=== PATIENT | male | born 1950 | race Caucasian/White ===

== ENCOUNTER 2020-06-15 00:11 | Outpatient (CLI) | payer OTHER, SELFPAY ==
[2020-06-15 20:23] LABS: SARS-CoV-2 RNA PCR Negative
== END 2020-06-15 00:12 | disposition home or self-care (01) ==
LOC: ANHCOVIDDT 00:12
PROVIDERS: PCP Internal Medicine; Visit Provider Internal Medicine Gastroenterology
DX: Z01.812 Encounter for preprocedural laboratory examination (principal); Z20.828 Contact with and (suspected) exposure to other viral communicable diseases
CPT/HCPCS: 87635; C9803; U0003

== ENCOUNTER 2020-06-17 01:40 | Day surgery (SDC) | payer OTHER, SELFPAY ==
[2020-06-09 13:53] VITALS: BMI 36.0
[2020-06-17 06:26] VITALS: BP 148/82; PULSE 95; RESP 16; TEMP 36.8; O2SAT 98; BMI 36.1
[2020-06-17 06:45] LABS: Glucose Point of Care 109 (65-105)
[2020-06-17] MEDS: LACTATED RINGERS 1,000 ML 150 ML IV CONT (06:46)
--- NOTE | 2020-06-17 07:14 | P.PNAN_ITS ---
Anes - Initial Pre Proc Eval Procedure: Operation Date: 06/17/20 07:30 Proposed Procedures p Screening Colonoscopy - Adan Ratliff MD Date/Time: 06/17/20 07:14 Surgeon: Adan Ratliff MD Pre Op Diagnosis: HX OF COLON POLYPS Patient Data Age: 70 Gender: M Height: 6 ft 1 in Weight: 124.2 kg Last Vital Signs Temp 36.8 C 06/17/20 06:26 Pulse 95 06/17/20 06:26 Resp 16 06/17/20 06:26 BP 148/82 H 06/17/20 06:26 Pulse Ox 98 06/17/20 06:26 Allergies Allergy/AdvReac Type Severity Reaction Status Date / Time No Known Allergies Allergy Verified 06/17/20 06:24 Home Medications Medication Instructions Recorded Confirmed Type apixaban [Eliquis] 5 mg PO Q12HR #60 tablet 11/01/19 06/09/20 Rx metoprolol tartrate 50 mg PO Q12HR #60 tablet 11/01/19 06/09/20 Rx metformin 500 mg PO DAILY 06/09/20 06/09/20 History Laboratory Tests 06/17/20 06:43 POC Capillary Glucose 109 mg/dl mg/dl (65-105) Patient hx anesthesia problems: none Family hx anesthesia problems: none PMFSH Past Medical History Medical History Afib Bladder cancer Diabetes type 2, controlled HTN (hypertension) Surgical History Surgical History No history of previous surgery S/P laparoscopic cholecystectomy S/P umbilical hernia repair, follow-up exam Family History Family History Father Acute myocardial infarction Hypertension Congestive heart failure Mother Congestive heart failure Other Gallbladder disease Sibling Patient's sister is in good health Mother Patient's mother is Father Patient's father is Social History Social History Social History: Pt is a former who smoked 2PPD for 40 years and quit 5 years ago. 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 He would like to be a full code. Smoking status: Former smoker Tobacco type: cigarettes Second hand tobacco smoke exposure: Yes Alcohol intake: never Substance use: never Gender identity (if verbalized by the patient): Male Spiritual care concerns: No Agree to blood products: Yes Anes - Eval Final PreProcedure Day of Procedure 06/17/20 07:14 Patient weight: obese Heart: irregular rhythm Lungs: decreased breath sounds Airway: Mallampati scale class II Neurological: alert and oriented Last oral intake: >/= 8 hours ASA classification: III Emergent: no Anesthetic plan: proceed Anesthesia type and monitoring: general GIVS and standard monitoring Informed Consent: The patient's anesthetic plan and its attendant risks and benefits were discussed with the patient/family/POA. Questions were solicited and answers provided to the satisfaction of the patient/family/POA.
--- NOTE | 2020-06-17 07:53 | WPDGICN ---
Assessment and Plan Assessment and plan (1) History of colon polyps: Code(s): Z86.010 - Personal history of colonic polyps Status: Acute Assessment and Plan: Patient has history of adenomatous colon polyps removed from the colon in 2016. Patient presents today for colonoscopy. Anticoagulation will be held briefly prior to procedure. Follow-up endoscopies at about 5 year intervals is advised. (2) Afib: Code(s): I48.91 - Unspecified atrial fibrillation Status: Acute (3) Bladder cancer: Code(s): C67.9 - Malignant neoplasm of bladder, unspecified Status: Acute GI Consult Note Consult date/time: 06/17/20 07:53 HPI: Gerard Cai is a 70 year old male Seen in evaluation at the request of Dr Ayush Manning. patient presents for screening colonoscopy. Patient has a history of adenomatous colon polyps removed from the colon in 2016. His current weight appetite bowel movements are normal. He denies abdominal pain. He has had no bleeding. His bowel habits are now regular. Past medical history is significant for history of cholecystectomy in October 2019. He has subsequently was identified as having bladder cancer. Currently has been treated and with no evidence of active disease. He has a history of atrial fibrillation diagnosis this year now on Eliquis which will be held for any colonoscopy. Review of Systems Review of Systems: All systems reviewed & are unremarkable except as noted in HPI and below PMFSH Past Medical History Medical History Afib Bladder cancer Diabetes type 2, controlled HTN (hypertension) Surgical History Surgical History No history of previous surgery S/P laparoscopic cholecystectomy S/P umbilical hernia repair, follow-up exam Family History Family History Father Acute myocardial infarction Hypertension Congestive heart failure Mother Congestive heart failure Other Gallbladder disease Sibling Patient's sister is in good health Mother Patient's mother is Father Patient's father is Social History Social History Social History: Pt is a former who smoked 2PPD for 40 years and quit 5 years ago. 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 He would like to be a full code. Smoking status: Former smoker Tobacco type: cigarettes Second hand tobacco smoke exposure: Yes Alcohol intake: never Substance use: never Gender identity (if verbalized by the patient): Male Spiritual care concerns: No Agree to blood products: Yes Meds Home Medications and Allergies Home Medications Medication Instructions Recorded Confirmed Type apixaban [Eliquis] 5 mg PO Q12HR #60 tablet 11/01/19 06/09/20 Rx metoprolol tartrate 50 mg PO Q12HR #60 tablet 11/01/19 06/09/20 Rx metformin 500 mg PO DAILY 06/09/20 06/09/20 History Allergies Allergy/AdvReac Type Severity Reaction Status Date / Time No Known Allergies Allergy Verified 06/17/20 06:24 Vital Signs Vital Signs - 24 hr 06/17/20 06:26 Temperature 98.3 F Pulse Rate 95 Respiratory Rate 16 Blood Pressure 148/82 H Pulse Oximetry 98 Exam Narrative: Exam Narrative: Physical exam reveals patient to be alert. Vital signs stable. HEENT exam unremarkable. He is anicteric. Lungs are clear to auscultation and percussion. Heart is without murmur or extra sounds. Abdominal exam bowel sounds are present soft nontender with no organomegaly. Digital external rectal exam is normal.
[2020-06-17 07:55] VITALS: BP 123/76; PULSE 94; RESP 18; O2SAT 97
[2020-06-17 08:05] VITALS: BP 129/81; PULSE 86; RESP 22; O2SAT 99
[2020-06-17 08:15] VITALS: BP 141/78; PULSE 83; RESP 25; O2SAT 99
== END 2020-06-17 08:36 | disposition home or self-care (01) ==
PROVIDERS: PCP Internal Medicine; Visit Provider Internal Medicine Gastroenterology
PROC: 0DJD8ZZ Inspection of Lower Intestinal Tract, Via Natural or Artificial Opening Endoscopic (ICD-10-PCS; CPT 45378; principal; 2020-06-17 07:30)
DX: Z12.11 Encounter for screening for malignant neoplasm of colon (principal); K64.8 Other hemorrhoids; Z86.010 Personal history of colon polyps; I48.91 Unspecified atrial fibrillation; I10 Essential (primary) hypertension; E11.9 Type 2 diabetes mellitus without complications; Z85.51 Personal history of malignant neoplasm of bladder; Z79.01 Long term (current) use of anticoagulants; Z79.84 Long term (current) use of oral hypoglycemic drugs; Z87.891 Personal history of nicotine dependence; E66.9 Obesity, unspecified; Z68.36 Body mass index [BMI] 36.0-36.9, adult
CPT/HCPCS: G0105; J2704; J7120

== ENCOUNTER 2021-10-14 08:28 | Outpatient (CLI) | payer OTHER, SELFPAY ==
--- NOTE | 2021-10-14 11:00 | NEURO_ITS ---
Impression: # Complains of stinging pain in right hand. # Moderate right Carpal Tunnel Syndrome. # No ulnar neuropathy. # Needle/EMG exam mildly neurogenic in right APB. Nerve Conduction Studies Anti Sensory Summary Table Stim Site NR Peak (ms) P-T Amp (?V) Site1 Site2 Delta-P (ms) Dist (cm) Patrick (m/s) Right Median Anti Sensory (2-3nd Digit) Wrist 4.8 6.4 Wrist 2-3nd Digit 4.8 14.0 29 Wrist 7.4 13.5 Wrist 2-3nd Digit 4.8 14.0 29 Right Radial Anti Sensory (Base 1st Digit) Wrist 3.0 23.6 Wrist Base 1st Digit 3.0 0.0 Right Ulnar Anti Sensory (5th Digit) Wrist 2.8 29.5 Wrist 5th Digit 2.8 14.0 50 Motor Summary Table Stim Site NR Onset (ms) O-P Amp (mV) Site1 Site2 Delta-0 (ms) Dist (cm) Patrick (m/s) Right Median Motor (Abd Poll Brev) Wrist 6.4 1.1 Elbow Wrist 6.6 32.0 48 Elbow 13.0 1.6 Right Ulnar Motor (Abd Dig Minimi) Wrist 2.7 6.3 A Elbow Wrist 6.1 34.0 56 A Elbow 8.8 4.5 F Wave Studies NR F-Lat (ms) L-R F-Lat (ms) Right Median (Mrkrs) (Abd Poll Brev) 32.40 Right Ulnar (Mrkrs) (Abd Dig Min) 31.94 EMG Side Muscle Nerve Root Ins Act Fibs Amp Dur Recrt Comment Right 1stDorInt Ulnar C8-T1 Nml Nml Nml Nml Nml Right Ext Indicis Radial (Post Int) C7-8 Nml Nml Nml Nml Nml Right Ext Digitorum Radial (Post Int) C7-8 Nml Nml Nml Nml Nml Right BrachioRad Radial C5-6 Nml Nml Nml Nml Nml Right PronatorTeres Median C6-7 Nml Nml Nml Nml Nml Right Abd Poll Brev Median C8-T1 Nml Nml Incr >12ms Reduced Right Abd Poll Long Radial (Post Int) C7-8 Nml Nml Nml Nml Nml MTDD
== END 2021-10-14 08:29 | disposition home or self-care (01) ==
PROVIDERS: PCP Internal Medicine; Visit Provider Nurse Practitioner
DX: G56.01 Carpal tunnel syndrome, right upper limb (principal)
CPT/HCPCS: 95886; 95909

== ENCOUNTER 2021-12-02 01:17 | Day surgery (SDC) | payer OTHER, SELFPAY ==
[2021-11-24 15:10] VITALS: BMI 38.9
--- NOTE | 2021-11-24 15:16 | PC.NURSE ---
Report to the Outpatient Waiting Room, entrance under the green pavilion located off [facility], at time _1200 on date _12/02/21 . OR Time: _1300 . - You and your visitor will be asked a series of questions to screen for COVID 19 for your protection. - A mask is required within the hospital. - Only one visitor is allowed at this time. Patient visitors will be guided where to wait when not with patient. Preoperative COVID Testing Requirements: No COVID Test needed if: (proof is required; if not received patient will have Rapid Test prior to entry) - Patient has received COVID Vaccine at least 14 days prior to procedure date or - Patient has positive COVID test result within last 90 days of surgery date. COVID Test needed if above criteria is not met If not COVID vaccinated a COVID test must be conducted within 72 hours of surgery and patient is asked to isolate self from time of testing until procedure. You will go to the [facility] for your COVID testing. The [facility] Testing site is located at the corner of [address] [facility]. You will only be called if COVID results are positive and your surgeon may reschedule your elective surgery date. LIGHT BREAKFAST MORNING OF SURGERY Take the following medications with a SIP of water the morning of surgery: ___ALL ROUTINE MEDICATIONS MAY REMAIN ON ELIQUIS PER DR MARTINEZ Medications to discontinue per physician Date to take last dose Please no make-up, nail spanish, hairspray, perfume, deodorant, or body powder the day of surgery. No jewelry (including any body piercings) or valuables the day of surgery, leave them at home. Please take a shower or bath the night before, or the morning of, surgery with an antibacterial soap. Wear comfortable, loose fitting clothing. Children are encouraged to wear pajamas. - Jewelry must be removed prior to entering the operating room. Rings and piercings that are not removed may be cut off. - The hospital will not accept responsibility for valuables. - Please leave all valuables, including medications, at home the day of surgery. If you are going home after surgery, a licensed van cdl driver must drive you home. - NO public transportation without another adult. - We recommend that an adult stay with you for 24 hours following discharge. - We also recommend that you do not drive, make important decision, drink alcoholic beverages, or take any drugs that were not prescribed by your health care provider for at least 24 hours after your discharge time. For Pediatric surgeries, we recommend two adults accompany the child home (only one inside the building at this time). Follow any additional instructions given to you from your surgeon. Telephone instructions given to __PT and asked if any additional questions and then verbalized understanding. Patient advised to call surgeon office or pre surgery nurse liaison [phone] if any additional questions.
[2021-12-02] VITALS (13 sets, daily range): BP systolic 135–159; BP diastolic 65–93; PULSE 78–94; RESP 16–20; TEMP 35.7; O2SAT 94–98
[2021-12-02] MEDS: LIDO 1%/EPINEPHRINE/PF 1:200,000 30 ML VIAL INFILTRATE (10:58)
[2021-12-02] MEDS: BACITRACIN OINTMENT 15 GM TUBE 1 APPLIC TOPICAL (10:59)
[2021-12-02] MEDS: BALANCED SALT SOLN OPHTH IRRIG 30 ML BTL EACH EYE (11:02)
[2021-12-02 12:34] LABS: Glucose Point of Care 127 mg/dl (65-105)
--- NOTE | 2021-12-02 12:47 | P.OP_ITS ---
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 1 cm excision of neoplasm of unspecified behavior of the left lower ear with simple repair 2 cm Surgeon Rick Ledbetter MD Anesthesia local Description of Procedure The 2 sites were marked on the patient's head as he waited in the holding area. He was taken to the operating room placed supine on the operating table. Time- out was held and confirmed. The face and ear and were prepped and draped in usual fashion the sites were carefully marked for incision and locally infiltrated with 1% lidocaine with epinephrine. The lesion from the forehead was taken 1st with a full-thickness skin excision extending to the deep fascia. The specimen was marked at its superior margin and sent to pathology for frozen section. The pathologist reported that the deep margin was positive around the 7:00 o'clock area. The deep fascia was reexcised from the 6 to 12 o'clock aspect extending over mm deep and a little beyond the periphery of the prior excision. The the old 7:00 o'clock margin was marked with suture and ink . The pathologist reports all new margins free. During that time the small excision was taken from the helix of the left lower ear. That specimen was sent for permanent section. The wound was closed with interrupted 5 0 nylon. Standing cones removed both and to improve contour. The forehead lesion was closed after undermining more than a cm in all directions and approximating the wound margins with intradermal 3-0 Vicryl suture and closing the skin with a running 5 0 nylon Estimated Blood Loss 5 Drains No Packing No Pathology yes Complications No immediate complications Condition stable Disposition same day
--- NOTE | 2021-12-02 13:08 | WPDHPUPDATE1 ---
History and Physical Update Update Date/Time: 12/02/21 13:08 History and Physical has been reviewed, including an updated exam of the patient. There are NO changes in the patient's condition. Risks, benefits, and alternatives have been discussed and questions answered. Patient agrees to proceed with procedure.
== END 2021-12-02 12:45 | disposition home or self-care (01) ==
PROVIDERS: PCP Internal Medicine; Visit Provider Plastic Surgery
PROC: (CPT 11642; principal; 2021-12-02 11:30)
DX: C44.319 Basal cell carcinoma of skin of other parts of face (principal); L82.1 Other seborrheic keratosis; E11.9 Type 2 diabetes mellitus without complications; I49.9 Cardiac arrhythmia, unspecified; Z79.01 Long term (current) use of anticoagulants; Z79.84 Long term (current) use of oral hypoglycemic drugs
CPT/HCPCS: 11642; 12052; 11441; 82948; 88305; 88331; A9270

== ENCOUNTER → 2022-02-24 12:20 | Outpatient (CLI) | payer OTHER, SELFPAY ==
--- NOTE | ~2022-02-24 | XR_ITS ---
XR hip BI 2V w AP pelvis DATE: 02/24/2022 13:36 INDICATION: Right hip pain TECHNIQUE: AP pelvis. AP and lateral views of each hip. COMPARISON: None FINDINGS: Prominent degenerative disc disease at L5-S1. Osteopenia. The pubic symphysis and sacroiliac joints are intact. No fracture or dislocation, avascular necrosis or bone destruction of either hip. Moderate bilateral hip osteoarthritis. IMPRESSION: Bilateral hip osteoarthritis Osteopenia Prominent degenerative disc disease at L5-S1 Reviewed, dictated and finalized at location A.
--- NOTE | ~2022-02-24 | XR_ITS ---
EXAMINATION: XR shoulder RT min 2V DATE: 02/24/2022 13:36 INDICATION: Right shoulder pain. TECHNIQUE: 4 views of right shoulder were obtained. COMPARISON: None. FINDINGS: Bone alignment is normal. No fracture. There is mild osteoarthritis of glenohumeral joint a nd acromioclavicular joint. IMPRESSION: 1. Polyarticular osteoarthritis. Reviewed, dictated and finalized at location A.
--- NOTE | ~2022-02-24 | XR_ITS ---
XR shoulder LT min 2V DATE: 02/24/2022 13:36 INDICATION: Shoulder pain TECHNIQUE: 4 views COMPARISON: None FINDINGS: There is diffuse osteopenia. There is old healed fracture deformity of the mid shaft of the left clavicle. No recent fracture or dislocation, periosteal reaction or bone destruction. No abnormal soft tissue calcification. IMPRESSION: Osteopenia Old healed fracture deformity of left clavicular shaft Reviewed, dictated and finalized at location A.
== END ==
PROVIDERS: PCP Internal Medicine; Visit Provider Internal Medicine
DX: M16.0 Bilateral primary osteoarthritis of hip (principal); M47.817 Spondylosis without myelopathy or radiculopathy, lumbosacral region; M19.011 Primary osteoarthritis, right shoulder; M85.812 Other specified disorders of bone density and structure, left shoulder
CPT/HCPCS: 73030; 73521

== ENCOUNTER 2022-05-24 14:37 | Outpatient (CLI) | payer OTHER, SELFPAY ==
--- NOTE | ~2022-05-24 | DEXA_ITS ---
Bone Density Report Name: ALO MOMIN Age: 72 Sex: Male Ethnicity: White Date of : 1950 Indication: screening for osteoporosis; history of glucocorticoids; prior fracture; cancer; Referring Provider: ESTEBAN MAYEN Study: Bone densitometry was performed. Exam Date: May 24, 2022 Accession number: [id number] Bone Density: Region BMD T-score Z-score Classification AP Spine(L1-L4) 1.113 0.2 1.2 Normal Femoral Neck (Left) 0.777 -1.1 0.2 Osteopenia Total Hip (Left) 1.070 0.2 1.0 Normal Femoral Neck (Right) 0.919 -0.1 1.2 Normal Total Hip (Right) 1.108 0.5 1.3 Normal Total Hip Mean 1.089 0.4 1.2 Normal World Health Organization criteria for BMD impression classify patients as: Normal (T-score at or above -1.0), Osteopenia (T-score between -1.0 and -2.5), or Osteoporosis (T-score at or below -2.5). 10-year Fracture Risk(1): Major Osteoporotic Fracture 12% Hip Fracture 2.7% Reported Risk Factors: [place] (), Neck BMD=0.777, BMI=37.4, previous fracture, glucocorticoids Input outside FRAX(R) limits. Adjusted to:Agxjdt=791 kg (1) FRAX(R) Version 3.08. Fracture probability calculated for an untreated patient. Fracture probability may be lower if the patient has received treatment. Clinical Information Provided by Patient: Has had a low trauma fracture Has taken Glucocorticoids Has the following medical conditions: Cancer Patient maximum height was 73 Impression: The patient has low bone mass, based on the Left Femoral Neck T-score. The patient has an estimated ten-year risk of hip fracture of 2.7% and an estimated ten-year risk of major fracture of 12%, based on the WHO FRAX algorithm. The patient has risk factors, including: previous fracture, history of glucocorticoid therapy. Discussion: BONE DENSITY IS LOW AT ONE OR MORE SKELETAL SITES. This patient's lowest T-score is low at one or more skeletal sites. It meets the World Health Organization's (WHO) criteria for ?low bone mass? (T-score between -1.0 and -2.5). The patient's 10-year risk of fracture as calculated by FRAX is less than the threshold where pharmacological therapy is recommended by the National Osteoporosis Foundation (NOF). However, all treatment decisions require clinical judgment and consideration of individual patient factors, including patient preferences, comorbidities, previous drug use, risk factors not captured in the FRAX model (e.g., frailty, falls, vitamin D deficiency, increased bone turnover, interval significant decline in bone density) and possible under or overestimation of fracture risk by FRAX. The patient should follow a healthful lifestyle (good nutrition with adequate calcium and vitamin D, and appropriate weight-bearing exercise). Follow-Up: Consider repeating this study i
== END 2022-05-24 14:38 | disposition home or self-care (01) ==
PROVIDERS: PCP Internal Medicine; Visit Provider Internal Medicine
DX: M85.852 Other specified disorders of bone density and structure, left thigh (principal)
CPT/HCPCS: 77080

== ENCOUNTER → 2023-08-16 07:27 | Outpatient (CLI) | payer OTHER, SELFPAY ==
--- NOTE | ~2023-08-16 | US_ITS ---
Limited Abdominal Sonogram: Real-time sonographic imaging of the right upper quadrant was performed. Clinical History: Elevated bilirubin Findings: The liver appears echogenic, with no evidence of mass lesion or bile duct dilatation. Main portal vein demonstrates normal direction of flow. The gallbladder is absent, consistent with prior cholecystectomy. The common bile duct measures 5 mm. The pancreas is obscured by bowel gas shadowing . Right kidney measures 11.3 cm in length, without evidence for hydronephrosis. Impression: Diffuse fatty infiltration of liver. Status post cholecystectomy. Reviewed, dictated and finalized at location . Impression: Diffuse fatty infiltration of liver. Status post cholecystectomy.
== END ==
PROVIDERS: PCP Nurse Practitioner; Visit Provider Nurse Practitioner
DX: K76.0 Fatty (change of) liver, not elsewhere classified (principal); Z90.49 Acquired absence of other specified parts of digestive tract
CPT/HCPCS: 76705

== ENCOUNTER 2024-02-22 12:33 | Outpatient (CLI) | payer OTHER, SELFPAY ==
--- NOTE | ~2024-02-22 | CT_ITS ---
CT of the Abdomen and Pelvis: Indication: Jaundice Technique: 2.5 mm axial scans were obtained through the abdomen and pelvis following intravenous adm inistration of 100 cc of Omnipaque 350. Dose reduction technique was used on this scan by utilizing a utomated exposure control and iterative reconstruction technique. The dose-length product (DLP) was 1 518.18 mGy-cm. Findings: Scans through the lung bases are unremarkable. Cholecystectomy clips are present. There is an 11 mm amorphous enhancing lesion in the left hepatic l obe, nonspecific (axial image 37). The spleen, pancreas, adrenals and left kidney are within normal l imits. There is a 1.7 cm hypodense, noncystic mass at the right kidney (axial image 82). There are at herosclerotic calcifications of the aorta. No lymphadenopathy. No bowel obstruction or bowel wall thickening. There is no evidence to suggest acute appendicitis. Images through the pelvis were performed. Small right-sided urinary bladder diverticulum present. No pelvic mass evident. No ascites. Impression: No etiology for jaundice identified. Patient is status post cholecystectomy, there is no evidence of biliary dilatation or obstructing mass. 1.7 cm hypodense, noncystic right renal mass. Pre and postcontrast MR recommended to assess for solid lesion versus complex cyst. 11 mm amorphous enhancing lesion in the left hepatic lobe is nonspecific, possibly flash filling david ngioma or other vascular phenomenon. Small right-sided urinary bladder diverticulum. Reviewed, dictated and finalized at [facility]. Impression: No etiology for jaundice identified. Patient is status post cholecystectomy, th ere is no evidence of biliary dilatation or obstructing mass. 1.7 cm hypodense, noncystic right renal mass. Pre and postcontrast MR recommend ed to assess for solid lesion versus complex cyst. 11 mm amorphous enhancing lesion in the left hepatic lobe is nonspecific, possi renetta flash filling hemangioma or other vascular phenomenon. Small right-sided urinary bladder diverticulum.
== END 2024-02-22 12:34 | disposition home or self-care (01) ==
PROVIDERS: PCP Nurse Practitioner; Visit Provider Nurse Practitioner
DX: R17 Unspecified jaundice (principal); N32.3 Diverticulum of bladder
CPT/HCPCS: 74177; Q9967

== ENCOUNTER 2024-04-04 13:19 | Outpatient (CLI) | payer OTHER, SELFPAY ==
--- NOTE | ~2024-04-04 | MR_ITS ---
EXAMINATION: MR MRCP wo/w con/w 3D wo ind DATE: 04/04/2024 14:37 INDICATION: Unspecified jaundice. Right kidney mass. TECHNIQUE: Magnetic resonance imaging (MRI) of the abdomen was performed without and with 20 mL intra venous contrast. Sequences included coronal T2-weighted FS FSE, coronal T2-weighted FSE, axial T1-jenni ghted LAVA, coronal FS FIESTA, axial dual-echo T1-weighted SPGR, coronal lava-FLEX, sagittal T2-weigh celestina FSE, axial T2-weighted FSE, and axial DWI. Thick-slab T2-weighted FSE images were obtained for ma gnetic resonance cholangiopancreatography (MRCP). Maximum intensity projection 3-D reconstructions of the volumetric data were created by the technologist. Postcontrast sequences included coronal LAVA-f emeterio and time course of axial T1-weighted LAVA. COMPARISON: CT abdomen and pelvis 02/22/2024, 10/28/19 FINDINGS: ABDOMEN MRI: There is a 13 mm hyperenhancing mass in left hepatic lobe, stable from 10/28/19, likely benign. The gallbladder is absent. There is mild splenomegaly, stable from 10/28/19, which may be sec ondary to obesity. The pancreas, and adrenal glands are normal. There are cysts and hemorrhagic cysts in the kidneys measuring up to 2.5 cm on the left. There are no dilated loops of bowel. ABDOMEN MRCP: The common duct is normal and measures 3 mm. No choledocholithiasis. IMPRESSION: 1. Benign cysts in the kidneys. 2. No etiology for jaundice. Reviewed, dictated and finalized at location A.
== END 2024-04-04 13:20 | disposition home or self-care (01) ==
LOC: ANHIMG 13:21
PROVIDERS: PCP Nurse Practitioner; Visit Provider Nurse Practitioner Family
DX: R17 Unspecified jaundice (principal)
CPT/HCPCS: 74183; 76376; A9577

== ENCOUNTER 2024-04-17 14:16 | Outpatient (CLI) | payer OTHER, SELFPAY ==
[2024-04-17 15:15] LABS: Basophils Percent Auto 0.2 % (0.2-1.2); Eosinophils Percent Auto 0.2 % (0-4.4); Hematocrit 36.3 % (42.0-52.0); Hemoglobin 11.5 g/dL (14.0-18.0); Immature Granulocyte Percent A 1.6 % (0-0.5); Immature Reticulocyte Fraction 23.3 % (3.0-15.9); Lymphocytes Absolute Auto 1.31 K/mm3 (0.9-3.2); Lymphocytes Percent Auto 21.1 % (18.3-44.2); Mean Corpuscular HGB Conc 31.7 g/dl (32-36); Mean Corpuscular Hemoglobin 33.7 pg (26-34); Mean Corpuscular Volume 106.5 fl (80-100); Mean Platelet Volume 11.1 fl (7.4-10.4); Monocytes Absolute Auto 0.5 K/mm3 (0.1-0.6); Monocytes Percent Auto 8.5 % (2.6-8.5); Neutrophils Absolute Auto 4.2 K/mm3 (1.3-6.7); Neutrophils Percent Auto 68.4 % (45.5-73.1); Platelet Count Result 316 k/mm3 (150-375); Red Blood Count 3.41 M/mm3 (4.6-6.20); Red Cell Distribution Width 19.3 % (11.5-14.5); Reticulocyte Hemoglobin Conten 34.5 pg (28.2-36.6); Reticulocyte Percent 5.74 % (0.7-4.3); White Blood Count 6.2 K/mm3 (4.5-10.0)
[2024-04-17 17:56] LABS: Iron 188 ug/dL (49-181)
[2024-04-17 18:07] LABS: Percent Iron Saturation 56 % (20-50)
[2024-04-17 18:13] LABS: Alanine Aminotransferase 42 U/L (6-50); Albumin Level 4.5 g/dL (3.5-5.1); Alkaline Phosphatase 76 U/L (38-126); Anion Gap 8 mmol/L (4-12); Aspartate Amino Transferase 36 U/L (17-59); Bilirubin,Total 8.2 mg/dL (0.2-1.3); Blood Urea Nitrogen 19 mg/dL (9-20); Calcium 9.3 mg/dL (8.4-10.2); Carbon Dioxide 25 mmol/L (22-30); Chloride 107 mmol/L (98-107); Estimated Glomerular Filt Rate > 60; Glucose 116 mg/dL (65-110); Lactate Dehydrogenase 272 U/L (120-246); Potassium 4.3 mmol/L (3.4-5.0); Sodium 140 mmol/L (137-145)
[2024-04-17 19:19] LABS: Folic Acid 5.7 ng/mL (2.76->20)
[2024-04-18 12:53] LABS: Haptoglobin 105 mg/dL (43-212)
[2024-04-21 08:18] LABS: Methylmalonic Acid 213 nmol/L (69-390)
[2024-04-24 18:12] LABS: Soluble Transferrin Receptor 3.44 mg/L (0.76-1.76)
== END 2024-04-17 14:17 | disposition home or self-care (01) ==
LOC: ANHLAB 14:17
PROVIDERS: PCP Nurse Practitioner; Visit Provider Internal Medicine Hematology & Oncology
DX: D64.9 Anemia, unspecified (principal); E83.19 Other disorders of iron metabolism
CPT/HCPCS: 36415; 80053; 81256; 82607; 82728; 82746; 83010; 83540; 83550; 83615; 83921; 84238; 85025; 85046; 86023

== ENCOUNTER 2024-08-05 10:38 | Outpatient (CLI) | payer OTHER, SELFPAY ==
[2024-08-05 10:52] LABS: Basophils Percent Auto 0.2 % (0.2-1.2); Eosinophils Percent Auto 0.2 % (0-4.4); Hemoglobin 11.8 g/dL (14.0-18.0); Immature Granulocyte Absolute 0.11 K/mm3 (0.00-0.031); Immature Granulocyte Percent A 1.8 % (0-0.5); Lymphocytes Absolute Auto 2.29 K/mm3 (0.9-3.2); Lymphocytes Percent Auto 37.3 % (18.3-44.2); Mean Corpuscular HGB Conc 32.8 g/dl (32-36); Mean Corpuscular Hemoglobin 33.1 pg (26-34); Mean Corpuscular Volume 100.8 fl (80-100); Mean Platelet Volume 10.4 fl (7.4-10.4); Monocytes Absolute Auto 0.9 K/mm3 (0.1-0.6); Monocytes Percent Auto 14.3 % (2.6-8.5); Neutrophils Absolute Auto 2.8 K/mm3 (1.3-6.7); Neutrophils Percent Auto 46.2 % (45.5-73.1); Platelet Count Result 265 k/mm3 (150-375); Red Blood Count 3.57 M/mm3 (4.6-6.20); Red Cell Distribution Width 19.6 % (11.5-14.5); White Blood Count 6.1 K/mm3 (4.5-10.0)
[2024-08-05 13:31] LABS: Iron 178 ug/dL (49-181)
[2024-08-05 13:33] LABS: Alanine Aminotransferase 35 U/L (6-50); Albumin Level 4.4 g/dL (3.5-5.1); Alkaline Phosphatase 70 U/L (38-126); Anion Gap 9 mmol/L (4-12); Aspartate Amino Transferase 31 U/L (17-59); Bilirubin,Total 6.9 mg/dL (0.2-1.3); Blood Urea Nitrogen 18 mg/dL (9-20); Calcium 9.1 mg/dL (8.4-10.2); Carbon Dioxide 25 mmol/L (22-30); Chloride 103 mmol/L (98-107); Estimated Glomerular Filt Rate > 60; Glucose 119 mg/dL (65-110); Lactate Dehydrogenase 278 U/L (120-246); Potassium 4.2 mmol/L (3.4-5.0); Sodium 137 mmol/L (137-145)
[2024-08-05 13:45] LABS: Percent Iron Saturation 53 % (20-50)
== END 2024-08-05 10:39 | disposition home or self-care (01) ==
LOC: ANHLAB 10:41
PROVIDERS: PCP Nurse Practitioner; Visit Provider Internal Medicine Hematology & Oncology
DX: D64.9 Anemia, unspecified (principal)
CPT/HCPCS: 36415; 80053; 82728; 83540; 83550; 83615; 85025

== ENCOUNTER 2025-02-10 11:05 | Outpatient (CLI) | payer OTHER, SELFPAY ==
[2025-02-10 11:28] LABS: Basophils Percent Auto 0.2 % (0.2-1.2); Eosinophils Percent Auto 0.2 % (0-4.4); Hematocrit 35.2 % (42.0-52.0); Hemoglobin 11.4 g/dL (14.0-18.0); Immature Granulocyte Absolute 0.07 K/mm3 (0.00-0.031); Immature Granulocyte Percent A 1.3 % (0-0.5); Lymphocytes Absolute Auto 2.11 K/mm3 (0.9-3.2); Lymphocytes Percent Auto 38.7 % (18.3-44.2); Mean Corpuscular HGB Conc 32.4 g/dl (32-36); Mean Corpuscular Volume 98.9 fl (80-100); Mean Platelet Volume 10.4 fl (7.4-10.4); Monocytes Absolute Auto 0.9 K/mm3 (0.1-0.6); Monocytes Percent Auto 15.6 % (2.6-8.5); Neutrophils Absolute Auto 2.4 K/mm3 (1.3-6.7); Platelet Count Result 287 k/mm3 (150-375); Red Blood Count 3.56 M/mm3 (4.6-6.20); Red Cell Distribution Width 19.8 % (11.5-14.5); White Blood Count 5.5 K/mm3 (4.5-10.0)
[2025-02-10 12:35] LABS: Iron 126 ug/dL (49-181)
[2025-02-10 12:39] LABS: Alanine Aminotransferase 31 U/L (6-50); Albumin Level 4.2 g/dL (3.5-5.1); Alkaline Phosphatase 80 U/L (38-126); Anion Gap 13 mmol/L (4-12); Aspartate Amino Transferase 32 U/L (17-59); Bilirubin,Total 5.3 mg/dL (0.2-1.3); Blood Urea Nitrogen 15 mg/dL (9-20); Carbon Dioxide 23 mmol/L (22-30); Chloride 104 mmol/L (98-107); Estimated Glomerular Filt Rate > 60; Glucose 122 mg/dL (65-110); Potassium 4.1 mmol/L (3.4-5.0); Sodium 140 mmol/L (137-145)
--- OUTSIDE RECORDS SUMMARY | 2025-02-10 12:43 | XMS_ITS | Clinical Summary ---
Author Organization [facility] [address] Address [address] [place] [address] Care Team Providers Care Door Patcher Name Role Phone Ayush Manning DO Primary Care Provider [phone] Allergies Active Allergy Reactions Criticality Noted Date Comments Pjtyqbp-Lme-Zyz Reductase Inhibitors Muscle pain Medium 06/14/2022 Medications metFORMIN (GLUCOPHAGE) 500 mg tablet Take 1 tablet (500 mg total) by mouth daily 10/26/2019 Active losartan (COZAAR) 50 mg tablet Take 1 tablet (50 mg total) by mouth daily 11/18/2021 Active cholecalciferol, vitamin D3, (VITAMIN D3 ORAL) Take by mouth Active finasteride (PROSCAR) 5 mg tablet Take 1 tablet (5 mg total) by mouth daily 01/25/2023 Active predniSONE (DELTASONE) 5 mg tablet 04/06/2023 Active folic acid (FOLVITE) 1 mg tablet Take 1 tablet (1,000 mcg total) by mouth daily 07/22/2024 Active amLODIPine (NORVASC) 5 mg tablet Take 1 tablet (5 mg total) by mouth daily 30 tablet 11 09/02/2024 Active metoprolol tartrate (LOPRESSOR) 50 mg immediate release tablet TAKE 1 TABLET BY MOUTH EVERY 12 HOURS. 180 tablet 3 10/31/2024 Active apixaban (Eliquis) 5 mg tablet Take 1 tablet (5 mg total) by mouth every 12 (twelve) hours 180 tablet 2 11/06/2024 Active ezetimibe (ZETIA) 10 mg tablet TAKE 1 TABLET BY MOUTH EVERY DAY 90 tablet 2 12/03/2024 Active Active Problems Problem Noted Date Diagnosed Date Severe obesity 09/02/2024 Morbid (severe) obesity due to excess calories 0 04/06/2023 Statin myopathy 06/14/2022 Polymyalgia rheumatica 06/14/2022 Cardiomyopathy 11/24/2020 ESCAMILLA (dyspnea on exertion) 11/24/2020 History of tobacco abuse 11/24/2020 Mixed diabetic hyperlipidemi a associated with type 2 diabetes mellitus (CMS/HCC) 11/24/2020 Coronary artery calcification seen on CT scan Hypertension associated with diabetes 05/19/2020 Pulmonary hypertension 05/19/2020 Chronic anticoagulation 05/19/2020 Longstanding persistent atrial fibrillation (CMS /HCC) 05/19/2020 Surgical History Surgery Date Site/Laterality Comments CHOLECYSTECTOMY HERNIA REPAIR TRANSURETHRAL RESECTION OF B LADDER TUMOR 10/30/2018 - 10/29/2019 CARPAL TUNNEL RELEASE Medical History Medical History Date Comments Atrial fibrillation (HCC) Hypertension Cancer (HCC) Bladder Family History Medical History Relation Name Comments Heart disease Father Prostate cancer Father Heart disease Mother No Known Problems Sister 1 Hypertension Sister 2 Hypertension Sister 3 Relation Name Status Comments Father (Age 81) Mother (Age 85) Sister 1 Alive Sister 2 Alive Sister 3 Alive Social History Tobacco Use Types Packs/Day Years Used Date Smoking Tobacco: Former Cigarettes Smokeless Tobacco: Never Tobacco Cessation:Counseling Given: Not Answered Alcohol Use Standard Drinks/Week Comments Not Currently 0 (1 standard drink = 0.6 oz pur e alcohol) Sex and Gender Information Value Date Recorded Sex Assigned at Not on file Legal Sex Male 6:26 PM MARKETING FINANCE MANAGER Gender Identity Not on file Sexual Orientation Not on file Obstetrics History Last Filed Vital Signs Vital Sign Reading Time Taken Comments Blood Pressure 138/72 09/02/2024 11:37 AM MARKETING FINANCE MANAGER Pulse 84 09/02/2024 11:37 AM MARKETING FINANCE MANAGER Temperature 36.5 C (97.7 F) 04/02/2020 9:00 AM CDT Respiratory Rate - - Oxygen Saturation 96% 09/02/2024 11: 37 AM MARKETING FINANCE MANAGER Inhaled Oxygen Concentration - - Weight 128.4 kg (283 lb 1.6 oz) 024 11:37 AM MARKETING FINANCE MANAGER Height 185.4 cm (6' 1 ) 09/02/2024 11:3 7 AM MARKETING FINANCE MANAGER Body Mass Index 37.35 09/02/2024 11:37 AM MARKETING FINANCE MANAGER Plan of Treatment Health Maintenance Due Date Last Done Comments Albumin Creatinine Ratio, Urine 1948 Depression Screening 1948 Fall Risk Assessment 1948 Hemoglobin A1C 1948 Hepatitis C Screening 1948 eGFR 1948 Dilated Eye Exam 1948 Foot Exam 1948 Hepatitis B Screening 1966 Abdominal Aortic Aneurysm (A AA) Screen 2013 Well Visit 65+ 2013 Zoster Vaccine (2 of 3) 04/04/2016 02/08/2016 Lipid Panel 05/31/2024 05/31/2023, 03/30, 01/10/2022, Additional history exists Influenza Vaccine (Season Ended) 2025 07/22/2019, 08/06/2018, 08/10/2017, Additional history exists DTaP/Tdap/Td Vaccine (2 - Td or Tdap) 02/07/2026 02/08/2016 Pneumococcal vaccine 65+ Completed 04/03/2017, 01/28 Procedures Procedure Name Priority Date/Time Associated Diagnosis Comments LIPID PANEL Routine 05/31/2023 10:14 AM CDT from Last 3 Months or Most Recently Relevant to Health Maintenance Results * (ABNORMAL) Lipid panel (05/31/2023 10:14 AM CDT) Cholesterol 131 100 - 199 mg/dL [facility] - 01 Triglycerides 125 0 - 149 mg/dL [facility] - 01 HDL Cholesterol 37(L) >39 mg/dL [facility] - 01 VLDL 22 5 - 40 mg/dL [facility] - 01 LDL, calculated 72 0 - 99 mg/dL [facility] - 01 05/31/2023 10:1 4 AM CDT 05/31/2023 Narrative [facility] - 06/01/2023 1:06 AM CDT Performed at: [address] [facility] [id number] Brine Tank Operator: Sukhdev Mai PhD, Phone: [phone] us Nate Perez MD LAB BLOOD ORDERABLES Fin al Result [facility] - 01 from Last 3 Months or Most Recently Relevant to Health Maintenance Insurance [facility] Care Teams Door Patcher Relationship Specialty Start Date End Date Ayush Manning DO [address] [facility] [address] [place] [address] PCP - General Internal Medicine 04/16/24
--- OUTSIDE RECORDS SUMMARY | 2025-02-10 12:43 | XMS_ITS | Referral Summary ---
Author Organization [facility] [place] [address] Address [address] [place] [address] Care Team Providers Care Circuitry Negative Inspector Name Role Phone Ayush Manning DO Primary Care Provider [phone] Allergies Active Allergy Reactions Criticality Noted Date Comments Hgteeal-Jls-Xem Reductase Inhibitors Muscle pain Medium 06/14/2022 Medications [...] a associated with type 2 diabetes mellitus ([facility]) 11/24/2020 Coronary artery calcification seen on CT scan Hypertension associated with diabetes 05/19/2020 Pulmonary hypertension 05/19/2020 Chronic anticoagulation 05/19/2020 Longstanding persistent atrial fibrillation ([facility]) 05/19/2020 Social History Tobacco Use Types Packs/Day Years Used Date Smoking Tobacco: Former Cigarettes Smokeless Tobacco: Never Tobacco Cessation:Counseling Given: Not Answered Alcohol Use Standard Drinks/Week Comments Not Currently 0 (1 standard drink = 0.6 oz pur e alcohol) Sex and Gender Information Value Date Recorded Sex Assigned at Not on file Legal Sex Male 6:26 PM TITLE OFFICER Gender Identity Not on file Sexual Orientation Not on file Last Filed Vital Signs Vital Sign Reading Time Taken Comments Blood Pressure 138/72 09/02/2024 11:37 AM TITLE OFFICER Pulse 84 09/02/2024 11:37 AM TITLE OFFICER Temperature 36.5 C (97.7 F) 04/02/2020 9:00 AM CDT Respiratory Rate - - Oxygen Saturation 96% 09/02/2024 11: 37 AM TITLE OFFICER Inhaled Oxygen Concentration - - Weight 128.4 kg (283 lb 1.6 oz) 024 11:37 AM TITLE OFFICER Height 185.4 cm (6' 1 ) 09/02/2024 11:3 7 AM TITLE OFFICER Body Mass Index 37.35 09/02/2024 11:37 AM TITLE OFFICER Plan of Treatment Not on file Procedures Procedure Name Priority Date/Time Associated Diagnosis [...] - 06/01/2023 1:06 AM CDT Performed at: - [facility] [id number] Parking Cashier: Sukhdev Mai PhD, Phone: [phone] Nate Perez MD LAB BLOOD ORDERABLES Fin al Result [facility] 01 from Last 3 Months or Most Recently Relevant to Health Maintenance Insurance [facility] Care Teams Circuitry Negative Inspector Relationship Specialty Start Date End Date Ayush Manning DO [address] [id number] PCP - General Internal Medicine 04/16/24
--- OUTSIDE RECORDS SUMMARY | 2025-02-10 12:44 | XMS_ITS | Clinical Summary ---
Author Organization [facility] [address] Address [address] [place] [address] Care Team Providers Care Rv Service Technician Name Role Phone Ayush Manning Primary Care Provider [phone] Allergies No known active allergies Medications cholecalciferol (VITAMIN D3) 10 mcg/mL (400 unit/mL) Drops Take by mouth. Active apixaban (ELIQUIS) 5 mg tablet Take 5 mg by mouth every 12 hours. 3 Active ezetimibe (ZETIA) 10 mg tablet Take 10 mg by mouth daily. 4 Active losartan (COZAAR) 50 mg tablet Take 50 mg by mouth daily. 2 Active metoprolol tartrate (LOPRESSOR) 50 mg tablet Take 1 Tablet by mouth every 12 hours. 3 Active predniSONE (DELTASONE) 5 mg tablet Take 5 mg by mouth daily with breakfast. 3 Active finasteride (PROSCAR) 5 mg tablet Take 5 mg by mouth daily. 3 Active metFORMIN (GLUCOPHAGE) 500 mg tablet Take 1 Tablet by mouth daily. 4 Active folic acid (FOLVITE) 1 mg tablet TAKE 1 TABLET BY MOUTH EVERY DAY 90 Tablet 1 5 Active folic acid (FOLVITE) 1 mg tablet take 1 tablet by mouth every day 90 Tablet 1 4 01/14/20 25 Discontinued Active Problems No known active problems Encounters Date Type Department Care Team Description 02/04/2025 External Device Data ST[facility] ABSTRACTION Provider, Abstract 01/15/2025 External Device Data [facility] ABSTRACTION Provider, Abstract 01/11/2025 Refill [facility] - [place] [address] [place] [address] Gianni Graham MD 01/06/2025 External Device Data [facility] ABSTRACTION Provider, Abstract 12/24/2024 External Device Data [facility] ABSTRACTION Provider, Abstract 11/27/2024 External Device Data [facility] ABSTRACTION Provider, Abstract 11/21/2024 External Device Data [facility] ABSTRACTION Provider, Abstract from Last 3 Months Family History Medical History Relation Name Comments No Known Problems Child 1 No Known Problems Child 2 Heart Disease Father Prostate Cancer Father Heart Disease Mother Heart Disease Sister 1 No Known Problems Sister 2 No Known Problems Sister 3 Relation Name Status Comments Child 1 Alive Child 2 Alive Father Mother Sister 1 Alive Sister 2 Alive Sister 3 Alive Social History Tobacco Use Types Packs/Day Years Used Date Smoking Tobacco: Former Cigarettes 2 50 Q uit: 04/17/2013 Smokeless Tobacco: Never Tobacco Cessation:Counseling Given: Not Answered Alcohol Use Standard Drinks/Week Comments Never 0 (1 standard drink = 0.6 oz pur e alcohol) Sex and Gender Information Value Date Recorded Sex Assigned at Not on file Legal Sex Male 3:58 PM CDT Gender Identity Not on file Sexual Orientation Not on file Last Filed Vital Signs Vital Sign Reading Time Taken Comments Blood Pressure 143/74 08/14/2024 2:02 PM CDT patient says this is his normal Pulse 75 08/14/2024 2:02 PM CDT Temperature 36.8 C (98.2 F) 08/14/2024 2:02 PM CDT Respiratory Rate 18 08/14/2024 2:02 PM CDT Oxygen Saturation 96% 08/14/2024 2:0 2 PM CDT Inhaled Oxygen Concentration - - Weight 128.8 kg (284 lb) 08/14/2024 2:0 2 PM CDT Height 185.4 cm (6' 1 ) 04/17/2024 1:30 PM CDT Body Mass Index 37.47 04/17/2024 1:30 PM CDT Plan of Treatment Upcoming Encounters Date Type Department Care Team (Late st Contact Info) Description 02/12/2025 1:15 PM CDT Office Visit [facility] - [place] [address] [facility] [address] [place] [address] Gianni Graham MD [address] [facility] [address] [place] [address] Health Maintenance Due Date Last Done Comments DIABETES ANNUAL FOOT EXAM 1966 DIABETES ANNUAL RETINAL EXAM 1966 DIABETES HBA1C Q 6 MONTHS 1966 DIABETES MICROALBUMIN ANNUAL SCREEN 1966 LDL CHOLESTEROL ANNUAL 1966 DTAP/TDAP/TD VACCINES (1 - Tdap) 1967 PNEUMOCOCCAL VACCINE 50+ YEARS (1 of 2 - PCV) 05/14/19 67 Lung Cancer Screening 1998 ZOSTER VACCINE (1 of 2) 1998 RSV VACCINE (60+ or ) (1 - 1-dose 75+ series) 2023 INFLUENZA VACCINE (#1) 2024 Medicare [place] ([place]) Prev entative Visit/Annual Wellness Visit 10/30/2024 Insurance [facility] Address: [place] [address] Care Teams Rv Service Technician Relationship Specialty Start Date End Date Ayush Manning DO [address] [facility] [address] [place] [address] PCP - General Internal Medicine 08/14/24
[2025-02-10 12:46] LABS: Percent Iron Saturation 41 % (20-50)
== END 2025-02-10 11:06 | disposition home or self-care (01) ==
LOC: ANHLAB 11:07
PROVIDERS: PCP Nurse Practitioner; Visit Provider Internal Medicine Hematology & Oncology
DX: D64.9 Anemia, unspecified (principal)
CPT/HCPCS: 36415; 80053; 82728; 83540; 83550; 85025

== ENCOUNTER 2025-08-12 12:39 | Outpatient (CLI) | payer OTHER, SELFPAY ==
[2025-08-12 13:12] LABS: Hematocrit 35.3 % (42.0-52.0); Hemoglobin 11.0 g/dL (14.0-18.0); Immature Granulocyte Percent A 1.7 % (0-0.5); Lymphocytes Absolute Auto 1.95 K/mm3 (0.9-3.2); Mean Corpuscular HGB Conc 31.2 g/dl (32-36); Mean Corpuscular Hemoglobin 31.6 pg (26-34); Mean Corpuscular Volume 101.4 fl (80-100); Nucleated Red Blood Cells Absolute Auto 0.000 K/mm3 (0.0-0.012); Nucleated Red Blood Cells Perc 0.0 % (0.0-0.2); Platelet Count Result 278 k/mm3 (150-375); Red Blood Count 3.48 M/mm3 (4.6-6.20); White Blood Count 4.8 K/mm3 (4.5-10.0)
--- OUTSIDE RECORDS SUMMARY | 2025-08-12 14:14 | XMS_ITS | Clinical Summary ---
Author Organization [facility] [address] Address [address] [place] [address] Care Team Providers Care Foster Care Case Manager Name Role Phone Ayush Manning DO Primary Care Provider [phone] Allergies Active Allergy Reactions Criticality Noted Date Comments Pdgxoss-Gee-Vej Reductase Inhibitors Muscle pain Medium 06/14/2022 Medications metFORMIN (GLUCOPHAGE) 500 mg tablet Take 1 tablet (500 mg total) by mouth daily 9 Active losartan (COZAAR) 50 mg tablet Take 1 tablet (50 mg total) by mouth daily 2 Active cholecalciferol , vitamin D3, (VITAMIN D3 ORAL) Take by mouth Active finasteride (PROSCAR) 5 mg tablet Take 1 tablet (5 mg total) by mouth daily 3 Active folic acid (FOLVITE) 1 mg tablet Take 1 tablet (1,000 mcg total) by mouth daily 4 Active metoprolol tartrate (LOPRESSOR) 50 mg immediate release tablet TAKE 1 TABLET BY MOUTH EVERY 12 HOURS. 180 tablet 3 5 Active ezetimibe (ZETIA) 10 mg tablet TAKE 1 TABLET BY MOUTH EVERY DAY 90 tablet 2 5 Active oxyBUTYnin XL (DITROPAN-XL) 5 mg 24 hr tablet Take 1 tablet (5 mg total) by mouth daily 5 Active amLODIPine (NORVASC) 10 mg tablet Take 1 tablet (10 mg total) by mouth daily 30 tablet 11 5 03/03/20 26 Active Eliquis 5 mg tablet TAKE 1 TABLET BY MOUTH EVERY 12 HOURS 180 tablet 2 5 Active apixaban (Eliquis) 5 mg tablet Take 1 tablet (5 mg total) by mouth every 12 (twelve) hours 180 tablet 2 5 07/22/20 25 Discontinued Active Problems Problem Noted Date Diagnosed Date [...] on file Legal Sex Male 6:26 PM PEWTER FINISHER Gender Identity Not on file Sexual Orientation Not on file Obstetrics History Last Filed Vital Signs Vital Sign Reading Time Taken Comments Blood Pressure 115/75 05/06/2025 2:35 PM CDT Pulse 79 05/06/2025 2:35 PM CDT hx of a fib Temperature 36.5 C (97.7 F) 04/02/2020 9:00 AM CDT Respiratory Rate 16 05/06/2025 2:12 PM CDT Oxygen Saturation 97% 05/06/2025 2:12 PM CDT Inhaled Oxygen Concentration - - Weight 130.2 kg (287 lb) 03/03/2025 11:34 AM CDT Height 185.4 cm (6' 1) 03/03/2025 11:34 AM CDT Body Mass Index 37.87 03/03/2025 11:34 AM CDT Plan of Treatment Health Maintenance Due Date [...] 03/30, 01/10/2022, Additional history exists Influenza Vaccine (#1) 2025 9, 08/06/2018, 08/10/2017, Additional history exists DTaP/Tdap/Td Vaccine (2 - Td or Tdap) 02/07/2026 02/08/2016 Pneumococcal vaccine 65+ Completed 04/03/2017, 01/28 Procedures Procedure Name Priority Date/Time Associated Diagnosis Comments LIPID PANEL Routine 05/31/2023 10:14 AM CDT from Last 3 Months or Most Recently Relevant to Health Maintenance Results * (ABNORMAL) Lipid panel (05/31/2023 10:14 AM CDT) Pathologist [facility] Cholesterol 131 100 - 199 mg/dL [facility] - 01 Triglycerides 125 0 - 149 mg/dL [facility] - 01 HDL Cholesterol 37(L) >39 mg/dL [facility] - 01 VLDL 22 5 - 40 mg/dL [facility] - 01 LDL, calculated 72 0 - 99 mg/dL [facility] - 01 05/31/2023 10:1 4 AM CDT 05/31/2023 Narrative [facility] - 06/01/2023 1:06 AM CDT Performed at: 01 - [facility] [address] [id number] Numerical Control Machine Machinist: Sukhdev Mai PhD, Phone: [phone] Nate Perez MD LAB BLOOD ORDERABLES Fin al Result [facility] - 01 from Last 3 Months or Most Recently Relevant to Health Maintenance Insurance Care Teams Foster Care Case Manager Relationship Specialty Start Date End Date Ayush Manning DO PCP - General Internal Medicine 04/16/24
--- OUTSIDE RECORDS SUMMARY | 2025-08-12 14:14 | XMS_ITS | Clinical Summary ---
Author Organization [facility] [address] Address [address] [place] [address] Care Team Providers Care Purifying Plant Operator Name Role Phone Ayush Manning Primary Care Provider [phone] Allergies No known active allergies Medications cholecalciferol (VITAMIN D3) 10 mcg/mL (400 unit/mL) Drops Take by mouth. Active apixaban (ELIQUIS) 5 mg tablet Take 5 mg by mouth every 12 hours. 05/19/2023 Active ezetimibe (ZETIA) 10 mg tablet Take 10 mg by mouth daily. 03/11/2024 Active losartan (COZAAR) 50 mg tablet Take 50 mg by mouth daily. 11/18/2021 Active metoprolol tartrate (LOPRESSOR) 50 mg tablet Take 1 Tablet by mouth every 12 hours. 08/01/2023 Active predniSONE (DELTASONE) 5 mg tablet Take 5 mg by mouth daily with breakfast. 04/06/2023 Active finasteride (PROSCAR) 5 mg tablet Take 5 mg by mouth daily. 01/25/2023 Active metFORMIN (GLUCOPHAGE) 500 mg tablet Take 1 Tablet by mouth daily. 04/23/2024 Active vibegron (Gemtesa) 75 mg Tablet Take by mouth. Active folic acid (FOLVITE) 1 mg tablet TAKE 1 TABLET BY MOUTH EVERY DAY 90 Tablet 1 07/07/2025 Active Active Problems No known active problems Encounters Date Type Department Care Team Description 08/05/2025 External Device Data [facility] ABSTRACTION Provider, Abstract 07/15/2025 External Device Data [facility] ABSTRACTION Provider, Abstract 07/15/2025 External Device Data [facility] ABSTRACTION Provider, Abstract 07/05/2025 Refill [facility] - [place] [address] [place] [address] Gianni Graham MD 07/02/2025 External Device Data [facility] ABSTRACTION Provider, Abstract 06/18/2025 External Device Data [facility] ABSTRACTION Provider, Abstract 06/17/2025 External Device Data [facility] ABSTRACTION Provider, Abstract 06/03/2025 External Device Data [facility] ABSTRACTION Provider, Abstract [...] Sign Reading Time Taken Comments Blood Pressure 124/60 02/12/2025 12:59 PM CDT Pulse 81 02/12/2025 12:59 PM CDT Temperature 36.7 C (98 F) 02/12/2025 12:59 PM CDT Respiratory Rate 15 02/12/2025 12:5 9 PM CDT Oxygen Saturation 94% 02/12/2025 12: 59 PM CDT Inhaled Oxygen Concentration - - Weight 130.3 kg (287 lb 3.2 oz) 025 12:59 PM CDT Height 185.4 cm (6' 1) 04/17/2024 1:30 PM CDT Body Mass Index 37.89 04/17/2024 1:30 PM CDT Plan of Treatment Upcoming Encounters Date Type Department Care Team (Late st Contact Info) Description 08/14/2025 1:00 PM CDT Office Visit [facility] - [place] [address] [facility] [address] [place] [address] Gianni Graham MD [address] [facility] [address] [place] [address] Health Maintenance Due Date Last [...] ) (1 - 1-dose 75+ series) 2023 [place] ([place]) Prev entative Visit/Annual Wellness Visit 10/30/2024 INFLUENZA VACCINE (#1) 2025 Insurance [facility] Care Teams Purifying Plant Operator Relationship Specialty Start Date End Date Ayush Manning DO [address] [facility] [address] [place] [address] PCP - General Internal Medicine 08/14/24
[2025-08-12 16:28] LABS: Alanine Aminotransferase 28 U/L (6-50); Albumin Level 4.3 g/dL (3.5-5.1); Alkaline Phosphatase 85 U/L (38-126); Anion Gap 7 mmol/L (4-12); Aspartate Amino Transferase 54 U/L (17-59); Bilirubin,Total 4.6 mg/dL (0.2-1.3); Blood Urea Nitrogen 12 mg/dL (9-20); Calcium 9.3 mg/dL (8.4-10.2); Carbon Dioxide 29 mmol/L (22-30); Chloride 102 mmol/L (98-107); Estimated Glomerular Filt Rate > 60; Glucose 116 mg/dL (65-110); Potassium 4.5 mmol/L (3.4-5.0); Sodium 138 mmol/L (137-145); Total Protein 8.4 g/dL (6.3-8.2)
[2025-08-12 16:41] LABS: Iron 113 ug/dL (49-181)
[2025-08-12 16:53] LABS: Percent Iron Saturation 35 % (20-50)
[2025-08-12 17:18] LABS: Ferritin 153.00 ng/mL (11.1-264)
== END 2025-08-12 12:40 | disposition home or self-care (01) ==
LOC: ANHLAB 12:40
PROVIDERS: PCP Internal Medicine; Visit Provider Internal Medicine Hematology & Oncology
DX: D64.9 Anemia, unspecified (principal)
CPT/HCPCS: 36415; 80053; 82728; 83540; 83550; 85025